=== PATIENT | male | born 1955 | race Caucasian/White ===

== ENCOUNTER 2017-11-12 18:45 | Emergency (ER) | payer OTHER ==
[2017-11-12 18:52] VITALS: BP 120/60; PULSE 63; TEMP 98; BMI 27.3
--- NOTE | 2017-11-12 18:52 | PDOC ---
Rapid Medical Evaluation Time Seen by Provider: 11/12/17 18:47 Medical Evaluation: I have performed a brief in-person evaluation of this patient. The patient presents with a chief complaint of: intermittent diarrhea and constipation with abdominal pain x 10 days; started when he was in [place]. was seen at [facility] - had negative abd xray and was sent here for CT scan of abdomen Pertinent physical exam findings: some abdominal distention. Minimal diffuse TTP I have ordered the following: labs, UA The patient will proceed to the ED for further evaluation. Discharge Disposition - Diagnosis Abdominal pain - Referrals - Patient Instructions - Post Discharge Activity
[2017-11-12] MEDS ORDERED: SODIUM CHLORIDE 0.9% 500 ML INFUS.BAG IV ONE (19:32)
[2017-11-12 19:34] LABS: BASO % 0.5 % (0-2.0); EOS % 0.8 % (0-4.5); HEMATOCRIT 45.9 % (35.4-49); HEMOGLOBIN 15.4 GM/dL (11.7-16.9); LYMPH % 29.4 % (8-40); MCH 32.7 pg (25.7-33.7); MCHC 33.6 g/dl (32.0-35.9); MEAN CELL VOLUME 97.5 fl (80-96); MEAN PLT VOLUME 8.5 fl (7.5-11.1); MONO % 10.8 % (3.8-10.2); NEUT % 58.5 % (42.8-82.8); PLATELET COUNT 240 K/MM3 (134-434); RBC 4.71 M/mm3 (4.00-5.60); WHITE BLOOD COUNT 6.6 K/mm3 (4.0-10.0)
[2017-11-12 19:54] LABS: URINE APPEARANCE CLEAR; URINE BILIRUBIN NEGATIVE (<2.0 mg/dL); URINE COLOR YELLOW; URINE GLUCOSE (UA) NEGATIVE (NEGATIVE); URINE KETONE NEGATIVE (NEGATIVE); URINE LEUK ESTERASE NEGATIVE (NEGATIVE); URINE NITRITE NEGATIVE (NEGATIVE); URINE PROTEIN NEGATIVE (NEGATIVE)
[2017-11-12 20:00] LABS: ALBUMIN 3.3 g/dl (3.4-5.0); ALK PHOS 220 U/L (45-117); ANION GAP 8 (8-16); BILIRUBIN,TOTAL 0.5 mg/dL (0.2-1.0); BLOOD UREA NITROGEN 9 mg/dL (7-18); CALCIUM 8.7 mg/dL (8.5-10.1); CHLORIDE 103 mmol/L (98-107); CO2 29 mmol/L (21-32); GLUCOSE,RANDOM 137 mg/dL (74-106); POTASSIUM 4.1 mmol/L (3.5-5.1); SGOT/AST 70 U/L (15-37); SGPT/ALT 70 U/L (12-78); SODIUM 140 mmol/L (136-145); TOT PROT 7.9 g/dl (6.4-8.2)
[2017-11-12] MEDS ORDERED: ACETAMINOPHEN 1000 MG/100 ML VIAL (NON FORMULARY) IVPB ONE (20:16)
--- NOTE | 2017-11-12 21:18 | PDOC ---
History of Present Illness - General History Source: Patient, Spouse Exam Limitations: No Limitations - History of Present Illness Initial Comments: 11/12/17 21:37 Patient is a 62 years old male with a significant past medical history of Diabetes, and Arthritis, who presents to the ED with complaints of diffuse abdominal pain that began earlier this week. Patient reports going to [facility] earlier today for same symptoms, stating he was given X-ray with the results being negative, and was then sent to the ED for a CT scan and further evaluation. He reports going to [place] for x3 weeks where he states he began to experience constipation for x2 days followed by diarrhea, stating he experienced x1 episode of watery stool per day for multiple days before [place]. Patient reports currently experiencing diffuse abdominal pain that he does not rate on a scale but states it feels like there is air trapped inside. Denies chest pain, Sob. Denies nausea, vomiting. Denies contact with sick individuals. Denies trauma to affected area. Denies dysuria, hematuria. Denies fevers, chills. Denies change in diet, change in appetite. Denies any other symptoms. Allergies: None Social history: No smoking. No alcohol. No illicit drugs. Surgical history: Foot surgery. PMD: None <Kenny Thompson - Last Filed: 11/12/17 21:37> <Patricia Donato - Last Filed: 11/13/17 06:40> - General Chief Complaint: Pain Stated Complaint: ABD PAIN Time Seen by Provider: 11/12/17 18:47 Past History <Kenny Thompson - Last Filed: 11/12/17 21:37> - Past Medical History COPD: No Diabetes: Yes - Suicide/Smoking/Psychosocial Hx Smoking History: Never smoked Have you smoked in the past 12 months: No Information on smoking cessation initiated: No Hx Alcohol Use: No Drug/Substance Use Hx: No Substance Use Type: None <Patricia Donato - Last Filed: 11/13/17 06:40> - Past Medical History Allergies/Adverse Reactions: Allergies Allergy/AdvReac Type Severity Reaction Status Date / Time No Known Allergies Allergy Verified 11/12/17 18:48 Home Medications: Ambulatory Orders Ciprofloxacin [Cipro (Restricted To Id)] 500 mg PO Q12H #6 tablet 11/12/17 Review of Systems - Review of Systems Able to Perform ROS?: Yes Comments:: 11/12/17 21:37 GENERAL/CONSTITUTIONAL: No fever or chills. No weakness. HEAD, EYES, EARS, NOSE AND THROAT: No change in vision. No ear pain or discharge. No sore throat. CARDIOVASCULAR: No chest pain or shortness of breath. RESPIRATORY: No cough, wheezing, or hemoptysis. GASTROINTESTINAL: +Abdominal pain. +Diarrhea, +Constipation,. No nausea, vomiting. GENITOURINARY: No dysuria, frequency, or change in urination. MUSCULOSKELETAL: No joint or muscle swelling or pain. No neck or back pain. SKIN: No rash NEUROLOGIC: No headache, vertigo, loss of consciousness, or change in strength/ sensation. ENDOCRINE: No increased thirst. No abnormal weight change. HEMATOLOGIC/LYMPHATIC: No anemia, easy bleeding, or history of blood clots. ALLERGIC/IMMUNOLOGIC: No hives or skin allergy. All Other Systems: Reviewed and Negative <Kenny Thompson - Last Filed: 11/12/17 21:37> *Physical Exam - Vital Signs Last Vital Signs Temp Pulse Resp BP Pulse Ox 98.0 F 63 18 120/60 100 11/12/17 18:48 11/12/17 18:48 11/12/17 18:48 11/12/17 18:48 11/12/17 18:48 - Physical Exam Comments: 11/12/17 21:38 GENERAL: Awake, alert, and fully oriented, in no acute distress HEAD: No signs of trauma EYES: PERRLA, EOMI, sclera anicteric, conjunctiva clear ENT: Auricles normal inspection, hearing grossly normal, nares patent, oropharynx clear without exudates. Moist mucosa NECK: Normal ROM, supple, no lymphadenopathy, JVD, or masses LUNGS: Breath sounds equal, clear to auscultation bilaterally. No wheezes, and no crackles HEART: Regular rate and rhythm, normal S1 and S2, no murmurs, rubs or gallops ABDOMEN: +Right lower quadrant tenderness. +Referred RLQ pain with Left Lower quadrant palpation. Soft, normoactive bowel sounds. No guarding, no rebound. No masses EXTREMITIES: Normal range of motion, no edema. No clubbing or cyanosis. No cords, erythema, or tenderness NEUROLOGICAL: Cranial nerves II through XII grossly intact. Normal speech, normal gait SKIN: Warm, Dry, normal turgor, no rashes or lesions noted. <Kenny Thompson - Last Filed: 11/12/17 21:37> - Vital Signs Last Vital Signs Temp Pulse Resp BP Pulse Ox 98.0 F 63 18 120/60 100 11/12/17 18:48 11/12/17 18:48 11/12/17 18:48 11/12/17 18:48 11/12/17 18:48 <Patricia Donato - Last Filed: 11/13/17 06:40> ED Treatment Course - LABORATORY CBC & Chemistry Diagram: 11/12/17 19:18 11/12/17 19:18 - ADDITIONAL ORDERS Additional order review: Laboratory Results 11/12/17 11/12/17 19:18 18:39 Sodium 140 Potassium 4.1 Chloride 103 Carbon Dioxide 29 Anion Gap 8 BUN 9 Creatinine 1.0 Creat Clearance w eGFR > 60 Random Glucose 137 H Calcium 8.7 Total Bilirubin 0.5 AST 70 H ALT 70 Alkaline Phosphatase 220 H Total Protein 7.9 Albumin 3.3 L Urine Color Yellow Urine Appearance Clear Urine pH 5.0 Ur Specific [place] 1.017 Urine Protein Negative Urine Glucose (UA) Negative Urine Ketones Negative Urine Blood Negative Urine Nitrite Negative Urine Bilirubin Negative Urine Urobilinogen 2.0 Ur Leukocyte Esterase Negative 11/12/17 19:18 RBC 4.71 MCV 97.5 H MCHC 33.6 RDW 15.0 MPV 8.5 Neutrophils % 58.5 Lymphocytes % 29.4 Monocytes % 10.8 H Eosinophils % 0.8 Basophils % 0.5 - Medications Given in the ED: ED Medications Discontinued Medications Generic Name Dose Route Start Last Admin Trade Name Jax PRN Reason Stop Dose Admin Acetaminophen 1,000 mg 11/12/17 20:16 11/12/17 20:18 Ofirmev Injection - IVPB 11/12/17 20:17 1,000 mg ONCE ONE Administration Sodium Chloride 1,000 ml 11/12/17 19:32 11/12/17 19:38 Normal Saline - IV 11/12/17 19:33 1,000 ml ONCE ONE Administration <Kenny Thompson - Last Filed: 11/12/17 21:37> - LABORATORY CBC & Chemistry Diagram: 11/12/17 19:18 11/12/17 19:18 - ADDITIONAL ORDERS Additional order review: Laboratory Results 11/12/17 11/12/17 19:18 18:39 Sodium 140 Potassium 4.1 Chloride 103 Carbon Dioxide 29 Anion Gap 8 BUN 9 Creatinine 1.0 Creat Clearance w eGFR > 60 Random Glucose 137 H Calcium 8.7 Total Bilirubin 0.5 AST 70 H ALT 70 Alkaline Phosphatase 220 H Total Protein 7.9 Albumin 3.3 L Urine Color Yellow Urine Appearance Clear Urine pH 5.0 Ur Specific [place] 1.017 Urine Protein Negative Urine Glucose (UA) Negative Urine Ketones Negative Urine Blood Negative Urine Nitrite Negative Urine Bilirubin Negative Urine Urobilinogen 2.0 Ur Leukocyte Esterase Negative 11/12/17 19:18 RBC 4.71 MCV 97.5 H MCHC 33.6 RDW 15.0 MPV 8.5 Neutrophils % 58.5 Lymphocytes % 29.4 Monocytes % 10.8 H Eosinophils % 0.8 Basophils % 0.5 - RADIOLOGY Radiology Studies Ordered: Category Date Time Status ABDOMEN & PELVIS CT W/O CONTR [CT] Stat CT Scan 11/12/17 19:32 Ordered - Medications Given in the ED: ED Medications Discontinued Medications Generic Name Dose Route Start Last Admin Trade Name Brynq PRN Reason Stop Dose Admin Acetaminophen 1,000 mg 11/12/17 20:16 11/12/17 20:18 Ofirmev Injection - IVPB 11/12/17 20:17 1,000 mg ONCE ONE Administration Sodium Chloride 1,000 ml 11/12/17 19:32 11/12/17 19:38 Normal Saline - IV 11/12/17 19:33 1,000 ml ONCE ONE Administration <Patricia Donato - Last Filed: 11/13/17 06:40> Medical Decision Making - Medical Decision Making 11/12/17 22:47 Pt comes with right lower abdominal pain and constipation followed by watery diarrhea. He returned from [place] and states that he has stomach upset. Pt has slight bump in AST and alk phos. Pt has irregular liver on CT scan possibly consistent with cirrhosis. Pt has normal labs otherwise and he is feeling better at this time. I will send him home with levaquin x 3 days and with GI follow up. <Patricia Donato - Last Filed: 11/13/17 06:40> *DC/Admit/Observation/Transfer - Attestations Scribe Attestion: 11/12/17 21:38 Documentation prepared by Kenny Thompson, acting as bacteriologist medical for Patricia Donato MD. <Kenny Thompson - Last Filed: 11/12/17 21:37> - Discharge Dispostion Decision to Admit order: No <Patricia Donato - Last Filed: 11/13/17 06:40> Diagnosis at time of Disposition: Abdominal pain, Enteropathy - Discharge Dispostion Disposition: HOME Condition at time of disposition: Stable - Prescriptions Prescriptions: Ciprofloxacin [Cipro (Restricted To Id)] 500 mg PO Q12H #6 tablet - Referrals Referrals: Malina Burks MD [Primary Care Provider] - Camacho Vanegas MD [Staff Physician] - Andrews Padilla MD [Staff Physician] -
[2017-11-12] MEDS ORDERED: metroNIDAZOLE 250 MG TABLET PO ONE (22:55)
[2017-11-12] MEDS ORDERED: metroNIDAZOLE 250 MG TABLET ONE (23:14)
== END 2017-11-12 23:34 | disposition home or self-care (01) ==
LOC: JER 18:45
PROC: 3E033NZ Introduction of Analgesics, Hypnotics, Sedatives into Peripheral Vein, Percutaneous Approach (ICD-10-PCS; principal; 2017-11-12)
DX: K63.9 Disease of intestine, unspecified (principal); E11.9 Type 2 diabetes mellitus without complications; M12.9 Arthropathy, unspecified
CPT/HCPCS: 36415; 74176-TC; 80053; 81003; 85025; 99282-25; J0131

== ENCOUNTER 2018-08-30 09:30 | Day surgery (SDC) | payer OTHER ==
[2018-08-30 10:13] LABS: BASO % 0.7 % (0-2.0); EOS % 1.6 % (0-4.5); HEMATOCRIT 41.9 % (35.4-49); HEMOGLOBIN 14.7 GM/dL (11.7-16.9); LYMPH % 38.1 % (8-40); MCH 34.9 pg (25.7-33.7); MCHC 35.1 g/dl (32.0-35.9); MEAN CELL VOLUME 99.5 fl (80-96); MEAN PLT VOLUME 9.7 fl (7.5-11.1); MONO % 10.5 % (3.8-10.2); NEUT % 49.1 % (42.8-82.8); PLATELET COUNT 121 K/MM3 (134-434); RBC 4.21 M/mm3 (4.00-5.60); RDW 14.9 % (11.9-15.9)
[2018-08-30 10:20] VITALS: BMI 28.8
[2018-08-30 10:44] LABS: INR 1.03 (0.83-1.09); PROTHROMBIN TIME (PATIENT) 12.2 SEC (9.7-13.0)
[2018-08-30 19:35] VITALS: BP 124/69; PULSE 80; TEMP 98
--- NOTE | 2018-09-06 16:58 | PATH ---
Surgical Pathology Report Patient Name: SMITA RICO [facility]. Rec. #: [id number] /Age/Gender: 1955 (Age: 63) / M Account: [id number] Location: RADIOLOGY INTER Taken: 08/30/2018 Received: 08/30/2018 Reported: 09/06/2018 Physicians: Andrews Padilla M.D. Specimen(s) Received LIVER BIOPSY Clinical History Abnormal LFTs, abnormal anti-smooth muscle antibody, rule out autoimmune hepatitis. Final Diagnosis LIVER, CORE BIOPSY: PORTAL TRACTS WITH MIXED CHRONIC INFLAMMATION ASSOCIATED BILE DUCT INFLAMMATION AND INJURY, ATIF-PORTAL DUCTULAR REACTION, AND PERIPORTAL CHRONIC CHOLESTASIS, SEE COMMENT. TRICHROME STAIN SHOWS BRIDGING FIBROSIS WITH LARGE AREAS OF SCARRING CONSISTENT WITH EVOLVING CIRRHOSIS (STAGE 3-4/4). MINIMAL STEATOHEPATITIS WITH PATCHY STEATOSIS (<10%), BALLOONING DEGENERATION OF HEPATOCYTES AND NAHID-DENK BODIES. RETICULIN STAIN SHOWS AN INTACT SINUSOIDAL ARCHITECTURE. IRON STAIN IS NEGATIVE FOR SIDEROSIS. PAS AND PAS WITH DIASTASE STAINS ARE NEGATIVE FOR [id number] GLOBULES. NEGATIVE FOR GRANULOMAS OR MALIGNANCY. Comment: The biopsy shows many portal tracts with mixed chronic inflammation including areas with increased numbers of plasma cells. There is focal bile duct inflammation and associated injury. Florid duct lesions (granulomatous cholangitis) typically seen in primary biliary cholangitis are not present in this specimen. Immunostain for CK-7 highlights periportal cholate stasis and ductular reaction. The patient is noted to have elevated GGT and alkaline phosphatase levels without significantly elevated transaminases. Anti-smooth muscle antibody level is elevated. Ultrasound does not show bile ductal dilatation. The differential diagnosis includes a primary duct disease such as primary biliary cholangitis, immune-mediated cholangitis, or sclerosing cholangitis including overlap syndromes, drug/toxin- induced injury, infection, and less likely a "burned-out" autoimmune-like hepatitis. Further imaging of the bile ducts may be helpful to evaluate for biliary disease. Case discussed with Dr. Andrews Padilla by Dr. Mckinney on 09/06/18. This case was sent to Dr. Parris Mckinney, GI and liver specialist, from [facility], [place], [place], the diagnosis above reflects her opinion ([id number]). Electronically Signed By Tali Miranda.D. Simon Collins M.D. Gross Description Received in formalin labeled with "liver biopsy" are 3 cores of mcneil soft tissue ranging from 1 cm to 1.8 cm in greatest length and less than 1 mm in diameter. The specimen is entirely submitted in one cassette. ALBERT08/30/2018 ara08/30/2018
== END 2018-08-30 16:00 | disposition home or self-care (01) ==
LOC: JRADIR 09:30
PROVIDERS: ATTEND Internal Medicine Gastroenterology
PROC: 0FB03ZX Excision of Liver, Percutaneous Approach, Diagnostic (ICD-10-PCS; principal; 2018-08-30)
DX: K75.81 Nonalcoholic steatohepatitis (NASH) (principal); K74.60 Unspecified cirrhosis of liver; K83.1 Obstruction of bile duct
CPT/HCPCS: 36415; 76942-TC; 85025; 85610; 87899; 88305-TC; 88313-TC; 88342-TC